=== PATIENT | male | born 1980 | race Asian ===

== ENCOUNTER 2018-03-06 08:05 | Emergency (ER) | payer OTHER ==
--- NOTE | 2018-03-06 08:09 | EDPHY ---
H & P Time Seen by Provider: 03/06/18 08:06 HPI/ROS: CHIEF COMPLAINT: Right-sided chest pain, dyspnea HISTORY OF PRESENT ILLNESS: The patient presents to the ED with several days of worsening pleuritic right-sided chest pain and dyspnea. The patient developed a upper respiratory infection several weeks ago with symptoms which included a mild productive cough. The patient saw his primary care provider 1 week ago who informed him that he felt he was suffering from viral bronchitis. The patient recently returned via plane from a work trip and developed increasing right-sided chest pain. He reports that it feels like "a broke my ribs." The patient denies significant past medical history. The patient denies asymmetric calf pain or swelling. REVIEW OF SYSTEMS: A comprehensive 10 point review of systems is otherwise negative aside from elements mentioned in the history of present illness. Source: Patient Exam Limitations: No limitations - Medical/Surgical History PMH: Past medical history: Noncontributory - Family History Significant Family History: No pertinent family hx - Physical Exam Exam: General Appearance: Alert, no distress Eyes: Pupils equal and round no pallor or injection ENT, Mouth: Mucous membranes moist Respiratory: Tenderness to palpation right anterior chest wall over the ribs, no subcutaneous emphysema, crackles noted right lung base Cardiovascular: Regular rate and rhythm Gastrointestinal: Abdomen is soft and nontender, no masses, bowel sounds normal Neurological: 5/5 strength all 4 extremities Skin: Warm and dry, no rashes Musculoskeletal: Neck is supple nontender Extremities: symmetrical, full range of motion Constitutional: Initial Vital Signs Temperature (C) 36.5 C 03/06/18 08:07 Heart Rate 79 03/06/18 08:07 Respiratory Rate 18 03/06/18 08:07 Blood Pressure 132/84 H 03/06/18 08:07 O2 Sat (%) 97 03/06/18 08:07 Allergies/Adverse Reactions: alcohol Allergy (Mild, Verified 03/06/18 08:11) skin turns red at application site Home Medications: Medication Instructions Recorded Albuterol [Ventolin Hfa Inhaler] 2 puffs IH QID PRN #1 mdi 03/06/18 Azithromycin [Zithromax] 250 mg PO DAILY #6 tab 03/06/18 Medical Decision Making - Diagnostics Imaging Results: Imaging Impressions Chest X-Ray 03/06/18 08:17 Impression: Mild underlying bronchitis. Mild atelectasis or early pneumonia right lower lobe. ED Course/Re-evaluation: The patient presents the ED for evaluation of right rib pain and ongoing cough. The patient does have a component of pleuritic chest pain. The patient's D- dimer is negative which I feel adequately excludes pulmonary embolism. The patient is clearly had antecedent infectious symptoms. The patient's chest x-ray demonstrates atelectasis versus an early infiltrate. The patient will be treated with azithromycin as he has not been on recent antibiotics and has no additional comorbidities. He is also given a prescription for an albuterol inhaler and instructed to use NSAIDs for management of his rib pain. The patient is nontoxic and well-appearing. He is appropriate for outpatient management. Differential Diagnosis: Differential diagnosis considered includes pneumonia, pneumothorax, pulmonary embolism, bronchitis - Data Points Laboratory Results: Laboratory Results 03/06/18 08:21 03/06/18 08:21 03/06/18 03/06/18 03/06/18 08:21 08:21 08:21 WBC 9.46 10^3/uL 10^3/uL (3.80-9.50) RBC 5.43 10^6/uL 10^6/uL (4.40-6.38) Hgb 16.6 g/dL g/dL (13.7-17.5) Hct 48.0 % % (40.0-51.0) MCV 88.4 fL fL (81.5-99.8) MCH 30.6 pg pg (27.9-34.1) MCHC 34.6 g/dL g/dL (32.4-36.7) RDW 11.3 % L % (11.5-15.2) Plt Count 312 10^3/uL 10^3/uL (150-400) MPV 9.6 fL fL (8.7-11.7) Neut % (Auto) 57.5 % % (39.3-74.2) Lymph % (Auto) 30.3 % % (15.0-45.0) [place] % (Auto) 9.5 % % (4.5-13.0) Eos % (Auto) 1.7 % % (0.6-7.6) Baso % (Auto) 0.7 % % (0.3-1.7) Nucleat RBC Rel Count 0.0 % % (0.0-0.2) Absolute Neuts (auto) 5.43 10^3/uL 10^3/uL (1.70-6.50) Absolute Lymphs (auto) 2.87 10^3/uL 10^3/uL (1.00-3.00) Absolute Monos (auto) 0.90 10^3/uL H 10^3/uL (0.30-0.80) Absolute Eos (auto) 0.16 10^3/uL 10^3/uL (0.03-0.40) Absolute Basos (auto) 0.07 10^3/uL 10^3/uL (0.02-0.10) Absolute Nucleated RBC 0.00 10^3/uL 10^3/uL (0-0.01) Immature Gran % 0.3 % % (0.0-1.1) Immature Gran # 0.03 10^3/uL 10^3/uL (0.00-0.10) D-Dimer 0.47 ug/mLFEU ug/mLFEU (0.00-0.50) Sodium 144 mEq/L mEq/L (135-145) Potassium 4.3 mEq/L mEq/L (3.3-5.0) Chloride 103 mEq/L mEq/L (97-110) Carbon Dioxide 26 mEq/l mEq/l (22-31) Anion Gap 15 mEq/L mEq/L (8-16) BUN 9 mg/dL mg/dL (7-23) Creatinine 0.7 mg/dL mg/dL (0.7-1.3) Estimated GFR > 60 Glucose 106 mg/dL H mg/dL (70-100) Calcium 9.0 mg/dL mg/dL (8.5-10.4) Departure - Departure Disposition: Home, Routine, Self-Care Clinical Impression: Pneumonia Condition: Good Instructions: Community Acquired Pneumonia (ED) Additional Instructions: 1. Take Ibuprofen or Motrin 600 mg by mouth three times a day. 2. Please use inhaler up to every 4 hr as needed for cough. 3. Antibiotics as directed for pneumonia. 4. Please return to the ED for markedly worsening symptoms or other concerns. 5. Please follow up with your primary care provider for a recheck within the week. Referrals: JENNIFER GOODMAN [Other] - As per Instructions Prescriptions: Albuterol [Ventolin Hfa Inhaler] 2 puffs IH QID PRN #1 mdi PRN Reason: for shortness of breath Azithromycin [Zithromax] 250 mg PO DAILY #6 tab
[2018-03-06 08:29] LABS: PLATELET COUNT 312 10^3/uL (150-400)
[2018-03-06 09:02] VITALS: BP 125/78
== END 2018-03-06 09:06 | disposition home or self-care (01) ==
DX: J18.9 Pneumonia, unspecified organism (principal)